=== PATIENT | female | born 1985 | race Two or more races ===

== ENCOUNTER 2020-01-23 19:38 | Emergency (ER) | payer MEDICAID ==
[~2020-01-23] VITALS: Ht 167.6 cm; Wt 85.0 kg
--- NOTE | 2020-01-23 19:43 | NUR ---
THIS IS A 34 YO F BIB EMS W/ C/O SUDDEN ONSET RT SIDE ABD PAIN, DIZZINESS AND NAUSEA THAT BEGAN AT APPROX 1700. PT DENIES SYMPTOMS. LAST BM YESTERDAY. PT RESTING ON GURNEY CONNECTED TO ALL MONITORING, VSS, NADN. AT BEDSIDE FOR ED EVAL. SIDE RAILS UPX2 AND CALL LIGHT IN REACH.
[2020-01-23] MEDS ORDERED: ONDANSETRON 2MG/ML, 2ML ONE (19:54)
[2020-01-23] MEDS ORDERED: MORPHINE SULFATE 4 MG/ML, 1ML ONE (19:54)
[2020-01-23] MEDS ORDERED: ONDANSETRON 2MG/ML, 2ML IVPush ONE (20:00)
[2020-01-23] MEDS ORDERED: SODIUM CHLORIDE 0.9% 1,000ML IVBOLUS ONE (20:00)
[2020-01-23] MEDS: MORPHINE SULFATE 4 MG/ML, 1ML IVPush PRN ×2 (20:00→22:00)
[2020-01-23] MEDS ORDERED: SODIUM CHLORIDE FLUSH 10ML SYR IVF ONE (20:00)
--- NOTE | 2020-01-23 20:00 | NUR ---
PT AMBULATED TO THE BR W/ A STEADY GAIT. URINE COLLECTED AND SENT TO LAB.
[2020-01-23 20:11] LABS: BASOPHILS # (AUTO) 0.09 x10^3/uL (0-0.1); BASOPHILS % (AUTO) 1 % (0-1); EOSINOPHILS # (AUTO) 0.16 x10^3/uL (0-0.4); EOSINOPHILS % (AUTO) 1 % (1-7); LYMPHOCYTES # (AUTO) 1.92 x10^3/uL (1-3.4); LYMPHOCYTES % (AUTO) 17 % (22-44); MD NO; MEAN CORPUSCULAR HEMOGLOBIN 26.5 pg (27.0-34.8); MEAN CORPUSCULAR HGB CONC 32.2 g/dL (32.4-35.8); MEAN CORPUSCULAR VOLUME 82.3 fL (80-100); MEAN PLATELET VOLUME 8.9 fL (7.4-10.4); MONOCYTES # (AUTO) 0.63 x10^3/uL (0.2-0.8); MONOCYTES % (AUTO) 6 % (2-9); NEUTROPHILS % (AUTO) 75 % (42-75); PLATELET COUNT 346 x10^3/uL (130-400); RED BLOOD COUNT 4.44 x10^6/uL (3.82-5.3); RED CELL DISTRIBUTION WIDTH 18.2 % (9.6-15.2)
[2020-01-23 20:16] LABS: MICROSCOPIC NOT IND
--- NOTE | 2020-01-23 20:18 | NUR ---
PT REPORTS RELIEF OF PAIN W/ MEDS.
[2020-01-23 20:23] LABS: ALANINE AMINOTRANSFERASE 16 U/L (12-78); ALBUMIN 3.9 g/dL (3.4-5.0); ANION GAP 9 mmol/L (5-15); CALCIUM 8.5 mg/dL (8.5-10.1); CHLORIDE 113 mmol/L (98-107); CREATININE 0.94 mg/dL (0.55-1.02)
[2020-01-23 20:27] LABS: ALKALINE PHOSPHATASE 65 U/L (45-117); BILIRUBIN,TOTAL 0.4 mg/dL (0.2-1.0); TOTAL PROTEIN 7.8 g/dL (6.4-8.2)
--- NOTE | 2020-01-23 20:40 | NUR ---
PT RESTING ON GURNEY W/ CALL LIGHT IN REACH AND SIDE RAILS UPX2. CATS, FACUNDO.
--- NOTE | 2020-01-23 20:56 | NUR ---
PT BACK FROM CT.
[2020-01-23] MEDS ORDERED: LORazepam 2 MG/ML, 1ML ONE (21:59)
[2020-01-23] MEDS ORDERED: LORazepam 2 MG/ML, 1ML IVPush ONE (22:00)
--- NOTE | 2020-01-23 22:30 | NUR ---
PT RESTING ON GURNEY W/ CALL LIGHT IN REACH AND SIDE RAILS UPX2. AWAITING RECHECK.
[2020-01-23 22:41] VITALS: BP 100/60
== END 2020-01-23 23:27 | disposition home or self-care (01) ==
LOC: ED 21:12
DX: R10.31 Right lower quadrant pain (principal); K76.89 Other specified diseases of liver; R11.2 Nausea with vomiting, unspecified; R42 Dizziness and giddiness; F17.210 Nicotine dependence, cigarettes, uncomplicated
CPT/HCPCS: 36415; 74176; 80053; 81003; 84703; 85025; 96361; 96374; 96375; 99284; 99406; J2060; J2270; J2405; J7030